=== PATIENT | male | born 1965 | race Caucasian/White ===

== ENCOUNTER 2017-04-01 19:54 | Observation (INO) | payer BC ==
[2017-04-01] MEDS ORDERED: Aspirin Low Dose CHEW TAB* 81 MG PO ONE (20:05)
[2017-04-01] MEDS ORDERED: Aspirin Low Dose CHEW TAB* 81 MG ONE (20:07)
--- NOTE | 2017-04-01 20:29 | ED ---
HPI Chest Pain - HPI Summary HPI Summary: Pt here w/ central chest pressure, SOB, fatigue and "just doesn't feel right" about 30 minutes prior to arrival (19:30). Was sitting with family playing cards when this started. He's been eating all day - tried Tums w/ no relief. Had a brief episode of nausea on the way here - has not returned and no vomiting. No cardiac hx but does smoke and reports he's probably been smoking more as of late as he's been celebrating the holidays with ETOH as well. May be less hydrated than usual as well d/t increased ETOH. Takes wellbutrin and SSRI. Denies headache, visual change, URI sx, cough, wheezing, ab pain, leg swelling, skin changes. Admits to BRB per rectum w/ BM's - he's had this for a few years now and had a colonoscopy 2 years ago to assess this. Discovered he has hemorrhoids causing the bleeding. Reports bleeding is worse when he's been drinking ETOH which he has been and so it's been more than usual. Denies pain w / this. Also reports he's urinating more than usual but denies flank pain, dysuria, urgency. No h/o GERD - takes ibuprofen 200mg every 2-3 weeks ( sometimes on an empty stomach). No recent travel, prolonged sitting or trauma. NOTE: after initial intake, pt reports he's lactose intolerant and ate lasagna tonight. Cheese typically triggers gas/bloating sx followed by diarrhea. Not sure if sx are related or not. - History of Current Complaint Chief Complaint: EDChestPainROMI Time Seen by Provider: 04/01/17 20:00 Hx Obtained From: Patient, Family/Dog Sitter - Pain Intensity: 3 - Allergy/Home Medications Allergies/Adverse Reactions: Allergies Allergy/AdvReac Type Severity Reaction Status Date / Time Trazodone Allergy Intermediate tougne Verified 09/23/12 21:18 swelling Home Medications: Home Medications Cholecalciferol [Vitamin D] 1,000 unit PO 04/01/17 [History Confirmed 04/01/17] buPROPion TAB* [Wellbutrin TAB*] 75 mg PO BID 04/01/17 [History Confirmed ] PMH/Surg Hx/FS Hx/Imm Hx Previously Healthy: Yes Endocrine/Hematology History: Reports: Other Endocrine/Hematological Disorders - reports low WBC's Denies: Hx Anticoagulant Therapy, Hx Blood Disorders, Hx Diabetes, Hx Thyroid Disease, Hx Anemia, Hx Coagulopothy Cardiovascular History: Denies: Hx Aneurysm, Hx Angina, Hx Atrial Fibrillation, Hx Congenital Heart Disease, Hx Congestive Heart Failure, Hx Deep Vein Thrombosis, Hx Hypercholesterolemia, Hx Hypertension, Hx Myocardial Infarction, Hx Syncope, Hx Valvular Heart Disease Respiratory History: Denies: Hx Asthma, Hx Chronic Bronchitis, Hx Chronic Obstructive Pulmonary Disease (COPD), Hx Pulmonary Embolism GI History: Reports: Other GI Disorders - hemorrhoids and lactose intolerance Denies: Hx Gall Bladder Disease, Hx Gastroesophageal Reflux Disease, Hx Hiatal Hernia, Hx Irritable Bowel History: Denies: Hx Benign Prostatic Hyperplasia, Hx Kidney Infection, Hx Kidney Stones Infectious Disease History: No Infectious Disease History: Denies: Traveled Outside the [place] in Last 30 Days - Family History Known Family History: Positive: Hypertension - Social History Occupation: Employed Full-time - works 40+ hours a week Lives: With Family Alcohol Use: Daily Hx Substance Use: No Substance Use Type: Reports: None Hx Tobacco Use: Yes Smoking Status (MU): Current Every Day Smoker Type: Cigarettes Amount Used/How Often: 4-5 qd Length of Time of Smoking/Using Tobacco: age [age] Review of Systems Positive: Fatigue. Negative: Fever, Chills Eyes: Negative Negative: Photophobia, Blurred Vision, Diplopia, Drainage, Erythema ENT: Negative Negative: Epistaxis, Dental Pain, Sore Throat, Ear Ache, Nasal Discharge Cardiovascular: Other - chest pressure Negative: Palpitations Positive: Shortness Of Breath. Negative: Cough Gastrointestinal: Negative Negative: Abdominal Pain, Vomiting, Diarrhea, Nausea Positive: frequency. Negative: burning, dysuria, discharge, flank pain, hematuria, incontinence, pain, urgency Musculoskeletal: Negative Skin: Negative Neurological: Negative Psychological: Normal All Other Systems Reviewed And Are Negative: Yes Physical Exam Triage Information Reviewed: Yes Vital Signs On Initial Exam: Initial Vitals Temp Pulse Resp BP Pulse Ox 97.5 F 65 16 146/87 100 04/01/17 19:55 04/01/17 19:55 04/01/17 19:55 04/01/17 19:55 04/01/17 19:55 Vital Signs Reviewed: Yes Appearance: Positive: Well-Appearing, No Pain Distress - appears concerned but no acute pain, Well-Nourished Skin: Positive: Warm, Dry - no skin changes Head/Face: Positive: Normal Head/Face Inspection Eyes: Positive: Normal, EOMI, HUSSEIN, Conjunctiva Clear - anicteric sclera ENT: Positive: Normal ENT inspection, Hearing grossly normal, Pharynx normal - mucosa moist. Negative: Nasal congestion, Nasal drainage Neck: Positive: Supple, Nontender - no gross thyromegaly Respiratory/Lung Sounds: Positive: Clear to Auscultation, Breath Sounds Present. Negative: Decreased Breath Sounds, Rales, Rhonchi, Subcutaneous Emphysema, Stridor, Tracheal Deviation, Wheezes, Unable to speak in full sentences, Fatigue Cardiovascular: Positive: Normal, RRR, S1, S2. Negative: Leg Edema Left, Leg Edema Right - (-) Joy's B/L Abdomen Description: Positive: No Organomegaly, Soft, Other: - epigastric TTP Bowel Sounds: Positive: Present Musculoskeletal: Positive: Normal, Strength/ROM Intact Neurological: Positive: Normal, Sensory/Motor Intact, Alert, Oriented to Person Place, Time, CN Intact II-III Psychiatric: Positive: Normal - calm, cooperative, alert and pleasant - [place] Coma Scale Coma Scale Total: 15 Diagnostics - Vital Signs Vital Signs Temp Pulse Resp BP Pulse Ox 04/01/17 20:11 70 15 132/85 99 04/01/17 19:55 97.5 F 65 16 146/87 100 - Laboratory Result Diagrams: 04/01/17 20:15 04/01/17 20:15 Lab Statement: Any lab studies that have been ordered have been reviewed, and results considered in the medical decision making process. Re-Evaluation - Re-Evaluation First Eval Change: Improved - sx are somewhat improved after taking ASA Second Eval Change: Improved - sx of pressure and SOB resolved after GI cocktail - epigastrum is no longer TTP Chest Pain Course/Dx - Course Course Of Treatment: Pt presents w/ sudden onset chest pressure and sensation of SOB at 19:30 today. Tried tums on the way over with who drove him here - reports he feels tired and "just not himself". Tums did not provide relief and d/t h/o smoking and recent increase in ETOH w/ holidays, chest w/u was ordered. ECG NSR w/o ST abnormalities. His vitals and labs are unremarkable for infection, acute blood loss, electrolyte imbalance and 1st trop is neg. While waiting for 2nd trop, a GI cocktail was ordered as pt reports he's lactose intolerant and had lasagna tonight which could be triggering his sx as he has epigastric pain w/ palpation. Pt reports resolution of sx w/ GI cocktail and epigastrum is no longer tender. His chest is clear and he states he feels much better. 2nd trop is elevated to 0.47. Spoke w/ Dr. Garvin who advised plavix 300mg (ordered) and anti-coagulation (Dr. Chaudhry to order heparin drip). Repeat ECG is still NSR w/o ST abnormalities - NSTEMI. Spoke w/ Dr. Chaudhry who will order a heparin drip and in to see pt. Pt reports he's pain free at this time and vitals reviewed - in stable condition at times of transfer. - Diagnoses Provider Diagnoses: ACS (acute coronary syndrome) Discharge - Discharge Plan Condition: Stable Disposition: ADMITTED TO [facility]
[2017-04-01 20:31] LABS: ABS Basophils 0.1 10^3/ul (0-0.2); ABS Eosinophils 0.1 10^3/ul (0-0.6); ABS Lymphocytes 2.4 10^3/ul (1.0-4.8); ABS Monocytes 0.5 10^3/ul (0-0.8); ABS Neutrophils 1.8 10^3/ul (1.5-7.7); ABS Nucleated RBC 0.02 10^3/ul; Eosinophil % 1.6 % (0-6); Hematocrit 41 % (42-52); Hemoglobin 14.6 g/dl (14.0-18.0); Lymphocyte % 49.7 % (25-47); Mean Corpuscular HGB Conc 35 g/dl (31-36); Mean Corpuscular Hemoglobin 33 pg (27-31); Mean Corpuscular Volume 92 fL (80-94); Mean Platelet Volume 8 um3 (7.4-10.4); Nucleated Red Blood Cells % 0.4; Platelet Count 192 10^3/ul (150-450); Red Cell Distribution Width 13 % (10.5-15); White Blood Count 4.8 10^3/ul (3.5-10.8)
[2017-04-01 20:43] LABS: EGFR Non-African American 63.1 (>60)
[2017-04-01 20:45] LABS: INR 0.91 (0.77-1.02)
--- NOTE | 2017-04-01 20:49 | RAD ---
INDICATION: Chest pain and shortness of breath. COMPARISON: There are no prior studies available for comparison. TECHNIQUE: A portable view of the chest was obtained. FINDINGS: Cardiac and mediastinal contours appear to be within normal limits. The lungs are underinflated. There are a couple linear densities at the left lung base most consistent with subsegmental atelectasis. The lungs are otherwise clear. No pleural effusion is seen. IMPRESSION: LOW LUNG VOLUMES, MINIMAL LEFT BASILAR SUBSEGMENTAL ATELECTASIS.
[2017-04-01] MEDS ORDERED: Lidocaine 2% VISCOUS* 15 ML UDC PO ONE (20:51)
[2017-04-01] MEDS ORDERED: Al Hydrox/Mg Hydrox/Simet LIQ* 30 ML UDC PO ONE (20:51)
[2017-04-01 22:17] LABS: Urine Appearance Clear; Urine Blood Negative (Negative); Urine Color Straw; Urine Ketones Negative (Negative); Urine Protein Negative (Negative); Urine Specific Gravity 1.012 (1.010-1.030); Urine Urobilinogen Negative (Negative)
[2017-04-01] MEDS ORDERED: Enoxaparin(*) 80 MG/0.8 ML SYR SUBCUT ONE (23:24)
[2017-04-01] MEDS ORDERED: Clopidogrel TAB* 300 MG PO ONE (23:24)
--- NOTE | 2017-04-01 23:32 | ED ---
Moris Yan Thomas, scribed for Carlos Garvin MD on 04/01/17 at 2331 . Progress - Progress Note Progress Note: The patient is a 51 year old male with no past medical history or family history of cardiac disease. He is a smoker. The patient had an episode of about 45 minutes of substernal chest pain, chest tightness, and shortness of breath. This episode did relieve spontaneously by arrival to the ED. The patient is pain -free in the emergency department. EKG obtained in the ED shows no acute ischemia. However, his troponin is elevated. The patient will be treated as acute coronary syndrome. The patient will be admitted, and the patient agrees with this plan. Course/Dx - Diagnoses Provider Diagnoses: ACS (acute coronary syndrome) The documentation as recorded by the Moris cisneros Thomas accurately reflects the service I personally performed and the decisions made by Virgie macdonald Abdul, MD.
[2017-04-02] MEDS ORDERED: Ondansetron INJ* 2 MG/ML VIAL IV PRN (00:14)
[2017-04-02] MEDS ORDERED: Nicotine Inhaler* 10 MG AMP INH PRN (00:14)
[2017-04-02] MEDS ORDERED: NS 0.9% 1000 ML* 1,000 ML IV SCH ×2 (00:15→12:45)
[2017-04-02] MEDS ORDERED: Heparin DRIP 25,000 UNITS(*) 25,000 UNITS/500 ML BAG IVPB SCH (00:15)
[2017-04-02] MEDS ORDERED: Mouth Piece, Nicotine* 1 EACH CARTRIDGE INH ONE (01:00)
[2017-04-02] MEDS ORDERED: Heparin VIAL(*) 5000 UNITS/ML VIAL (FIVE THOUSAND) IV SCH (01:00)
--- NOTE | 2017-04-02 02:38 | HP ---
ADMISSION HISTORY AND PHYSICAL: DATE OF ADMISSION: 04/02/17 PRIMARY CARE PROVIDER: Cesar Sebastian. HEALTHCARE PROXY: His . CODE STATUS: Full. SOURCE OF INFORMATION: History obtained from interview with the patient and his . RELIABILITY: Good. CHIEF COMPLAINT: Chest pressure. HISTORY OF PRESENT ILLNESS: This is a 51-year-old man with past medical history of depression, was in his usual state of health until approximately 7: 30 p.m. the night of presentation, started to develop chest tightness associated with shortness of breath and a sensation that he just felt off and his noted that he "didn't look right." He took some Tums without relief and proceeded to the emergency room. He notes that the pain lasted approximately 2 hours, was substernal, radiating to his left chest, worse with deep inspiration, associated with nausea, but no emesis, no diaphoresis, was mildly lightheaded at the time of onset, no palpitations, no syncope and no loss of consciousness. First time he has experienced such chest pain. He has had no recent travel, although did travel back from [place] several months ago in a 6-hour flight. He does not exercise, has relatively unlimited exercise tolerance, can walk about a mile depending on what he is carrying. He denies orthopnea or PND. In the emergency room, he received aspirin as well as a GI cocktail and when seen by this author, was in no pain. Of note, the patient does have hemorrhoids that bleed intermittently over the last 2 years. Notes that they bleed more when he is drinking more alcohol. He reports the colonoscopy 2 years prior to evaluate lower GI bleeding, which was notable for the hemorrhoids and no other significant pathology per report. He notes that the blood when bleeding is only on the toilet paper and not in the toilet bowl and not associated with the stool. PAST MEDICAL HISTORY: Includes tobacco use, hemorrhoids, lactose intolerance, depression, anxiety, and history of vasectomy. MEDICATIONS: He takes Wellbutrin and Zoloft, unknown doses. His will bring in the medications in the morning. Vitamin D 2000 International Units daily. ALLERGIES: To TRAZODONE. FAMILY HISTORY: No history of CAD or CVA. His father had hypertension. SOCIAL HISTORY: Drinks approximately 7 to 8 beers every other day. Smokes 5 to 6 cigarettes a day for approximately 30 years. Employed as a manufacturing maintenance manager. REVIEW OF SYSTEMS: Notable as per HPI including chest pain, shortness of breath , fatigue, sensation that he just did not feel right, bright red blood per rectum with stool, lightheadedness, nausea, otherwise all other systems negative. PHYSICAL EXAMINATION GENERAL: Sitting at 30 degrees in bed, interactive, pleasant, in no apparent distress. VITAL SIGNS: When seen by this author, blood pressure 120/100, heart rate 57, respiratory rate is 12, 98% on room air, T-max in the emergency room was 97.5. HEENT: His oropharynx is clear. He has moist mucous membranes. Sclerae are anicteric. NECK: He has non-elevated JVD. He has no cervical or supraclavicular lymphadenopathy. LUNGS: Clear to auscultation throughout. HEART: He has regular rate and rhythm. No murmurs, rubs, or gallops. ABDOMEN: Soft, nontender, and nondistended. RECTAL EXAM: Do not indicate any active hemorrhage or signs of bleeding, no externally prolapsed hemorrhoids. EXTREMITIES: Warm and well perfused without clubbing, cyanosis, or edema. He has 2+ peripheral pulses, less than 2 second cap refill. NEUROLOGIC: He is alert and oriented x3. His cranial nerves II through XII are intact. PSYCH: He has no apparent anxiety, agitation, or depression. DIAGNOSTIC STUDIES/LAB DATA: Pertinent labs reviewed. BUN is 21, creatinine 1.22, glucose 133, lactic acid 1.5. Troponin I is 0.00, increasing to 0.47 after 3 hours. His hemoglobin is 14.6 with hematocrit of 41, and platelets 192. Urine is negative. Pertinent imaging reviewed. Chest x-ray, impression: Low lung volumes, minimally left basilar subsegmental atelectasis. EKGs on presentation, normal sinus rhythm, ventricular rate of 63, normal limit axis and interval, T-wave flattening in V2 and V3, minimal upsloping 1-mm ST depressions in V4 and V5, resolved on repeat EKG 3 hours later. ASSESSMENT AND PLAN: This is a 51-year-old man presenting with atypical substernal chest pressure associated with positive cardiac biomarkers. 1. Non-ST segment elevation myocardial infarction. Received aspirin on presentation, initiate heparin with bolus. Received Plavix in the emergency room. Trend troponins, so peak. Repeat EKG with next troponin at 2 a.m. Plan on exercise stress test in the morning. The patient noted that he can walk on treadmill to perform the stress test. Check fasting cholesterol in the morning as well as repeat BMP given slightly elevated creatinine. 125 cc of normal saline running overnight. 2. Acute on chronic kidney disease, unclear if it is acute or chronic with normal saline as above and repeat BMP in the morning. 3. Alcohol abuse. Low suspicion that he will withdraw; however, noted here should he require benzodiazepines. 4. Tobacco abuse, counseled cessation. Nicotine inhaler. 5. Depression. Holding Wellbutrin and Zoloft as unknown doses. will bring in medications in the morning to confirm doses. The patient notes that if he misses several doses, may have symptoms of jitteriness or withdrawal, not concerned about missing the dose in the morning. 6. History of hemorrhoids. Examined, no active bleeding. Careful attention in the setting of heparinization. 7. DVT prophylaxis. Heparin drip. [id number]/[facility] #: [id number] HORACE
[2017-04-02 05:41] LABS: EGFR Non-African American 69.7 (>60)
[2017-04-02] MEDS ORDERED: Influenza VAC *QUAD* 2017-18* 0.5 ML SYRINGE IM ONE (09:00)
[2017-04-02] MEDS: Aspirin EC Low Dose* 81 MG TAB.EC PO SCH (10:11)
--- NOTE | 2017-04-02 10:28 | ECHO ---
Patient: CIARRA CROWLEY [facility] Rec#: [id number] : 1965 Date: 04/02/2017 Age: 51y Height: 167.64 cm / 66.0 in Weight: 77.11 kg / 170.0 lbs Sex: M BSA: 1.87 Room#: 433 Admit Date#: 04/02/2017 Type: Inpatient Referring: Froylan Chaudhry MD Reading: Enio Abarca MD Home Specialist: Gayla Jones RDCS CC: Luz Munoz MD Transthoracic Echocardiogram Indication: NSTEMI BP: 117/75 HR: 52 Rhythm: Bradycardia Findings History: Smoker, heavy ETOH use, depression/anxiety. Technical Comments: The study quality is good. Completed at 1000. Left Ventricle: The left ventricular chamber size is normal. There is no left ventricular hypertrophy. Left ventricular systolic function is at the lower limits of normal. Possible subtle inferoseptal hypokinesis. The estimated ejection fraction is 50-55%. Normal left ventricular diastolic filling is observed. Left Atrium: The left atrium is mildly dilated. Right Ventricle: Moderator Band present. The right ventricular cavity size is normal. The right ventricular global systolic function is low normal. Right Atrium: The right atrium is mildly dilated. Aortic Valve: The aortic valve is trileaflet. The aortic valve leaflets are mildly thickened. There is a trace of aortic regurgitation. There is no evidence of aortic stenosis. Mitral Valve: The mitral valve leaflets are mildly thickened. There is mild mitral regurgitation. There is no evidence of mitral stenosis. Tricuspid Valve: The tricuspid valve leaflets are normal. There is a physiologic tricuspid regurgitation. The right ventricular systolic pressure is estimated at 10 mmHg. No pulmonary hypertension is noted. There is no tricuspid stenosis. Pulmonic Valve: The pulmonic valve appears normal. There is trace to mild pulmonic regurgitation. There is no pulmonic stenosis. Pericardium: There is no significant pericardial effusion. Aorta: There is no dilatation of the ascending aorta. There is no dilatation of the aortic arch. The aortic root is normal in size. Pulmonary Artery: The main pulmonary artery appears normal. Venous: The inferior vena cava appears normal in size. There is a greater than 50% respiratory change in the inferior vena cava dimension. Summary: There was not any prior study for comparison. Conclusions Mild global hypokinesis of the left ventricle is observed. Left ventricular systolic function is at the lower limits of normal. Possible subtle inferoseptal hypokinesis. The estimated ejection fraction is 50-55%. The left atrium is mildly dilated. There is mild mitral regurgitation. Measurements Name Value Normal Range RVIDd (AP) 2D 2.9 cm (0.9 - 2.6) RVDdMajor (2D) 3.9 cm (2.2 - 4.4) RAd ISD 4CH 5.3 cm (3.4 - 4.9) RA (A4C)W 4.9 cm (2.9 - 4.6) IVSd (2D) 0.9 cm (0.6 - 1) LVPWd (2D) 0.8 cm (0.6 - 1) LVIDd (2D) 5.3 cm (3.6 - 5.4) LVIDs (2D) 3.6 cm - LV FS (2D) 32 % (25 - 45) Aortic Annulus 2.2 cm (1.4 - 2.6) Ao root diameter (2D) 3.5 cm (2.1 - 3.5) Ascending Ao 3 cm (2.1 - 3.4) Aortic arch 3 cm (1.8 - 3.4) LA dimension (AP) 2D 3.9 cm (2.3 - 3.8) LAd ISD 4CH 5.3 cm (2.9 - 5.3) LA ISD 4CH W 4.8 cm (2.5 - 4.5) Name Value Normal Range LA ESV SP 4CH (A/L) 59 ml - LA ESV SP 2CH (A/L) 71 ml - LA ESV BP (A/L) 68 ml - LA ESV BP (A/L) index 36 ml/m2 - LA ESV SP 4CH (MOD) 53 ml - LA ESV SP 2CH (MOD) 68 ml - Name Value Normal Range MV E-wave Vmax 0.82 m/sec - MV deceleration time 230.3 msec - MV A-wave Vmax 0.42 m/sec - MV E:A ratio 1.96 ratio - LV septal e' Vmax 0.12 m/sec - LV lateral e' Vmax 0.12 m/sec - LV E:e' septal ratio 6.83 ratio - LV E:e' lateral ratio 6.83 ratio - Name Value Normal Range AV Vmax 1.02 m/sec - AV VTI 24.5 cm - AV peak gradient 4.17 mmHg - AV mean gradient 2.25 mmHg - LVOT Vmax 0.89 m/sec - LVOT VTI 18.8 cm - LVOT peak gradient 3.18 mmHg - LVOT mean gradient 1.43 mmHg - RAYMOND Vmax 0.76 m/sec - Name Value Normal Range MR flow (PISA) 12.74 ml/sec - MR PISA radius 0.2 cm - Name Value Normal Range TR Vmax 1.3 m/sec - TR peak gradient 7 mmHg - RAP 3 mmHg - RVSP 10 mmHg - IVC diameter 1.9 cm - Name Value Normal Range PV Vmax 0.66 m/sec - PV peak gradient 1.76 mmHg - MD end-diastolic Vmax 0.78 m/sec -
[2017-04-02] MEDS ORDERED: Midazolam* 1 MG/ML 10 ML VIAL (10 MG) ONE (11:17)
[2017-04-02] MEDS ORDERED: fentaNYL* 50 MCG/ML 2 ML VIAL (100 MCG VIAL) ONE (11:17)
[2017-04-02] MEDS ORDERED: VERAPAMIL 2.5 MG/ML 4 ML VIAL ONE (11:17)
[2017-04-02] MEDS ORDERED: nitroGLYCERIN DRIP* 25,000 MCG/250 ML BTL ONE (11:17)
[2017-04-02] MEDS ORDERED: Heparin(*) 1000 UNIT/ML 10 ML VIAL CATH LAB IV ONE (11:17)
[2017-04-02] MEDS ORDERED: Heparin 2 UNITS/ML IVPREMIX* 2,000 ML IV ONE (12:32)
[2017-04-02] MEDS ORDERED: Iohexol 350 (CONTRAST) 200 ML MDV IV ONE (12:32)
--- NOTE | 2017-04-02 14:19 | PN ---
Subjective Date of Service: 04/02/17 Interval History: Patient has no complaints at time of interview. Patient denies CP, SOB, N/V, diaphoresis, diarrhea, constipation, F/C, recent illness, dizziness, PND, Nocturia, or orthopnea. Patient denies any previous episodes like this. Family History: Unchanged from Admission Social History: Unchanged from Admission Past Medical History: Unchanged from Admission Objective Active Medications: Aspirin (Aspirin Ec Low Dose*) 81 mg PO DAILY [facility] Last Admin: 04/02/17 10:11 Dose: 81 mg Atorvastatin Calcium (Lipitor*) 80 mg PO 2100 [facility] Clopidogrel Bisulfate (Plavix Tab*) 75 mg PO DAILY [facility] Sodium Chloride (Ns 0.9% 1000 Ml*) 1,000 mls @ 100 mls/hr IV .per rate [facility] Stop: 04/02/17 15:00 Nicotine (Nicotine Inhaler*) 10 mg INH Q2H PRN PRN Reason: CRAVING Ondansetron HCl (Zofran Inj*) 4 mg IV Q4H PRN PRN Reason: NAUSEA/VOMITING Vital Signs - 8 hr 04/02/17 04/02/17 04/02/17 07:42 07:46 12:43 Temperature 97.4 F Pulse Rate 52 53 Respiratory 18 18 11 Rate Blood Pressure 120/81 99/75 (mmHg) O2 Sat by Pulse 98 94 Oximetry 04/02/17 04/02/17 04/02/17 12:45 13:00 13:15 Temperature Pulse Rate 52 52 51 Respiratory 11 16 11 Rate Blood Pressure 102/73 106/73 105/74 (mmHg) O2 Sat by Pulse 95 95 96 Oximetry 04/02/17 13:30 Temperature Pulse Rate 58 Respiratory 16 Rate Blood Pressure 95/71 (mmHg) O2 Sat by Pulse 96 Oximetry Oxygen Devices in Use Now: None Appearance: Patient is a 51yo male who appears stated age and is sitting in the bed in NAD. Eyes: No Scleral Icterus, PERRLA Ears/Nose/Mouth/Throat: NL Teeth, Lips, Gums, Clear Oropharnyx, Mucous Membranes Moist Neck: NL Appearance and Movements; NL JVP, Trachea Midline Respiratory: Symmetrical Chest Expansion and Respiratory Effort, Clear to Auscultation Cardiovascular: NL Sounds; No Murmurs; No JVD, RRR, No Edema Abdominal: NL Sounds; No Tenderness; No Distention, No Hepatosplenomegaly Lymphatic: No Cervical Adenopathy Extremities: No Edema, No Clubbing, Cyanosis Skin: No Rash or Ulcers, No Nodules or Sclerosis Neurological: Alert and Oriented x 3, NL Sensation, NL Muscle Strength and Tone , - - CN II-XII intact. Result Diagrams: 04/01/17 20:15 04/02/17 04:32 Assess/Plan/Problems-Billing Assessment: - Patient Problems (1) NSTEMI (non-ST elevated myocardial infarction) Current Visit: Yes Status: Acute Code(s): I21.4 - NON-ST ELEVATION (NSTEMI) MYOCARDIAL INFARCTION SNOMED Code(s): 504642924 Comment: Patient had chest pressure and SOB with corresponding rise in troponin I up to 2.05. Appreciate Patient underwent Cardiac Catheterization which showed no CAD. Patient started on Atorvastatin, ASA, Plavix. Will start ACEI/BB if BP will tolerate. Currently hypotensive in recovery. Will monitor for hemodynamic stability at least overnight. (2) Anxiety Current Visit: Yes Status: Acute Code(s): F41.9 - ANXIETY DISORDER, UNSPECIFIED SNOMED Code(s): 96908561 Comment: Hold Wellbutrin and Zoloft. (3) Hyperlipidemia Current Visit: Yes Status: Acute Code(s): E78.5 - HYPERLIPIDEMIA, UNSPECIFIED SNOMED Code(s): 19180052 Comment: LDL cholesterol 120, started on Atorvastatin at 80mg daily. (4) DVT prophylaxis Current Visit: Yes Status: Acute Code(s): AAU2076 - SNOMED Code(s): 713016313 (5) Full code status Current Visit: Yes Status: Acute Code(s): Z78.9 - OTHER SPECIFIED HEALTH STATUS SNOMED Code(s): 209321810 Status and Disposition: Patient is admitted inpatient at least overnight for hemodynamic monitoring post cardiac catheterization.
--- NOTE | 2017-04-02 15:21 | CONS ---
CC: Dr. Luz Munoz * INTERVENTIONAL CARDIOLOGY CONSULT NOTE: DATE OF CONSULT: 04/02/17 PRIMARY CARE PHYSICIAN: Dr. Luz Munoz in [place]. HISTORY OF PRESENT ILLNESS: A 51-year-old male admitted with non-ST elevation infarct. For several months, he has had episodes of indigestion, which in some respects are similar to what he experienced yesterday, particularly in that it feels like a pressure sensation. He has also had more exertional dyspnea. He has not had any predictable effort-related chest discomfort. Yesterday, at rest he developed precordial chest tightness with shortness of breath and mild nausea, it lasted about 2 hours, resolved before admission. He has not had palpitations , syncope, PND, orthopnea, or peripheral edema. PAST MEDICAL HISTORY: Depression, history of hemorrhoidal bleeding with negative colonoscopy 2 years ago except for hemorrhoids. PREHOSPITAL MEDICATIONS: 1. Wellbutrin. 2. Zoloft. 3. Vitamin D, not on aspirin. FAMILY HISTORY: His father had abdominal aortic aneurysm per history. SOCIAL HISTORY: He is . He is a smoker. He does mechanical process engineer. REVIEW OF SYSTEMS: General: No weight loss, no fever. He is sedentary. Pulmonary: Negative for pneumonia, bronchitis, asthma. SENIOR DATA INTEGRATION DEVELOPER: No history of TIA or CVA. GI: No peptic ulcer disease. Heme: No history of malignancy or anemia. Circulatory: No claudication. Remainder all negative. PHYSICAL EXAM: He is pain free, looks well, somewhat overweight. BP 120/81, weighs 176 pounds. His lungs are clear without rales or wheezes. No dullness to percussion. JVP is normal at 5. Carotids are normal without bruits. HEENT : Normal without xanthelasma, scleral injection or jaundice. EOMs are normal. Cranial nerves grossly intact. Cardiac Exam: Chest wall is not tender, apex and RV not palpable. Normal S1, S2. No gallop, no murmur, no rub. Rhythm is regular. Abdomen: Soft, nontender, no bruit, I can feel the aorta. Radial, femoral and pedal pulses are normal. He has no cyanosis, clubbing, or edema. Skin is warm and perfused. Psych: He is oriented and appropriate. DIAGNOSTIC STUDIES/LAB DATA: Creatinine is 1.12 with GFR of 69.7. Troponin 0.47, 1.68, 2.05, 1.71. Cholesterol 191, triglycerides 117, LDL 120, HDL 47.6. EKG on presentation showed inferolateral less than 1 mm J-[address] segment depression with subsequent resolution. Chest x-ray by my review, portable film , no infiltrate or heart failure. IMPRESSION: 1. Non-ST elevation infarct. He has small infarct, MISTY score is 2 to 3. We discussed the diagnosis, options of evaluation including stress testing versus cath, pros and cons. We discussed catheterization, possible percutaneous revascularization, procedural risks including need for emergent transfer for bypass grafting, etc. We also discussed the need for dual-antiplatelet therapy. We discussed secondary risk factor modification. All questions were answered, he wants to proceed. 2. Family history of abdominal aortic aneurysm. 3. Tobacco use. He will be encouraged not to resume smoking. 4. Depression. 5. Hemorrhoidal bleeding with negative colonoscopy 2 years ago. [id number]/[facility] #: [id number] [place]
[2017-04-02] MEDS: Clopidogrel TAB* 75 MG PO SCH (15:37)
[2017-04-02] MEDS ORDERED: Acetaminophen TAB* 325 MG PO PRN (19:59)
[2017-04-02] MEDS ORDERED: Atorvastatin* 80 MG TAB PO SCH (21:00)
[2017-04-03 05:14] LABS: ABS Basophils 0 10^3/ul (0-0.2); ABS Eosinophils 0.1 10^3/ul (0-0.6); ABS Lymphocytes 1.5 10^3/ul (1.0-4.8); ABS Monocytes 0.4 10^3/ul (0-0.8); ABS Neutrophils 2.1 10^3/ul (1.5-7.7); ABS Nucleated RBC 0 10^3/ul; Eosinophil % 1.6 % (0-6); Hematocrit 41 % (42-52); Hemoglobin 14.4 g/dl (14.0-18.0); Lymphocyte % 36.7 % (25-47); Mean Corpuscular HGB Conc 35 g/dl (31-36); Mean Corpuscular Hemoglobin 32 pg (27-31); Mean Corpuscular Volume 93 fL (80-94); Mean Platelet Volume 8 um3 (7.4-10.4); Nucleated Red Blood Cells % 0.1; Platelet Count 153 10^3/ul (150-450); Red Blood Count 4.44 10^6/ul (4.0-5.4); Red Cell Distribution Width 13 % (10.5-15); White Blood Count 4.2 10^3/ul (3.5-10.8)
[2017-04-03 05:27] LABS: EGFR Non-African American 68.3 (>60)
[2017-04-03 07:53] VITALS: BP 109/69
[2017-04-03] MEDS: Clopidogrel TAB* 75 MG PO SCH (09:01)
[2017-04-03] MEDS: Aspirin EC Low Dose* 81 MG TAB.EC PO SCH (09:01)
--- NOTE | 2017-04-04 | CATH ---
CC: Cesar Marquez * CATH REPORT: DATE OF PROCEDURE: 04/02/17 - ROOM #[id number] PRIMARY CARE PHYSICIAN: Cesar Marquez. PROCEDURE: Right radial artery access, bilateral selective coronary cineangiography, left heart catheterization, left ventriculography. HISTORY: A 51-year-old male with non ST-elevation infarct, MISTY score 2, peak troponin of 2.05 with inferolateral less than [address] depression on presentation with subsequent resolution. PROCEDURE ACCESS: Right radial artery, sheath 6-F slender. MEDICATIONS: 1. Subcu lidocaine 2. IV Versed. 3. IV fentanyl. 4. Heparin 3000 units. 5. Nitroglycerin 300 mcg. 6. Verapamil 3 mg IA. DIAGNOSTIC CATHETER: 5F TIG4, 5F pigtail, 5FL 3.5, 5FMPA 1. The left coronary had a superior take-off, required a multipurpose for engagement. HEMODYNAMICS: Initial BP 127/88, LV 100/15-20, no aortic valve gradient on pull back. ANGIOGRAPHY: RCA: The RCA is large, dominant, smooth with a large PDA followed by several small posterolateral branches. The RCA has no stenosis. Left Main: The left main is superior, has no stenosis. LAD: The LAD is large, extends past the apex, the LAD has a smooth proximal 30 % stenosis before the first septal, LAD supplies 2 [id number] diagonals. The LAD has no significant stenosis. Circumflex: The circumflex is large, not dominant, supplies several small marginal, ends with a large posterolateral. LV Gram: Reveals symmetrical and normal wall motion, no mitral regurgitation, LVEF 55%. CONCLUSION: 1. No obstructive coronary disease, no angiographic evidence of a culprit lesion. 2. Normal LV systolic function. 3. Elevated LVEDP, otherwise normal left-sided hemodynamics. 4. Successful right radial artery access. 5. Non-ST elevation infarct without obstructive coronary disease at angiography. [id number]/[facility] #: [id number] [facility]
--- NOTE | 2017-04-04 05:09 | DS ---
CC: Dr. Luz Munoz; Dr. Angeles Colunga * DISCHARGE SUMMARY: DATE OF ADMISSION: 04/01/17 DATE OF DISCHARGE: 04/03/17 PRIMARY CARE PROVIDER: Dr. Luz Munoz. CONSULTING PROVIDER: Dr. Angeles Colunga. MY ATTENDING WHILE IN THE HOSPITAL: Dr. Saba Valles * (DICTATED BY ABAD STEWART) PRIMARY DISCHARGE DIAGNOSIS: Non-ST elevation myocardial infarction. SECONDARY DISCHARGE DIAGNOSES: 1. Anxiety/depression. 2. Hyperlipidemia. 3. Tobacco abuse. 4. History of hemorrhoidal bleeding. STUDIES DONE WHILE IN THE HOSPITAL: 1. Chest x-ray from 04/01/17 read as low lung volumes, minimal left basilar subsegmental atelectasis. 2. Electrocardiogram from 04/01/17 shows normal sinus rhythm, T-wave flattening in V2 and V3, [address] segment depression in V4 and V5, no other ST segment changes, normal axis, no hypertrophy or enlargement. No other abnormalities. QTc of 421. 3. Repeat EKG shows improvement in the T-wave flattening, no T-wave inversion in V3 or T-wave flattening in aVF, no other changes. Repeat EKG on 04/02/[address] depression, no other significant changes. Repeat EKG shows improvement in T-wave inversion, no other changes. EKG from 04/03/17 shows T-wave inversion in V3, T-wave flattening in aVF, no other abnormalities. 4. Transthoracic echocardiogram from 04/02/17 read as mild global hypokinesis. The left ventricle, left ventricular systolic function, otherwise normal. Possible subtle inferoseptal hypokinesis, estimated ejection fraction of 50% to 55%, left atrium mildly dilated, mild mitral regurgitation. 5. Cardiac catheterization from 04/02/17 showed no significant coronary artery disease. MEDICATIONS AT DISCHARGE: 1. Bupropion 75 mg p.o. b.i.d. 2. Sertraline 50 mg p.o. daily. 3. Aspirin 81 mg p.o. daily. 4. Atorvastatin 80 mg p.o. daily. 5. Clopidogrel 75 mg p.o. daily. New medications at discharge: 1. Aspirin. 2. Atorvastatin. 3. Clopidogrel. Medications discontinued at discharge: None. HOSPITAL COURSE: This is a brief summary of the patient's presentation. For more details, please see the history and physical from Dr. Froylan Chaudhry on . In brief, the patient is a 51-year-old male with past medical history significant for the above, who presented to the emergency department with chest tightness and shortness of breath at approximately 7:30 on 04/01/17, it was unrelieved by Tums, radiated to left chest, was worse with inspiration, had mild lightheadedness, no syncope. No recent travel. The patient had no relief with Tums. This resolved before the patient was seen in the emergency department. He received aspirin and GI cocktail. The patient had initial troponin, which was 0.00; however, repeat was 0.47. The patient was admitted with NSTEMI, given Plavix, aspirin. He was started on a heparin drip. The patient was scheduled for a stress test in the morning with n.p.o.; however, his troponin continued to rise. The patient remained chest pain free. Cardiology was consulted and it was recommended that the patient should have a cardiac catheterization due to probable NSTEMI. The patient was taken for cardiac catheterization, which showed no significant coronary artery disease. The patient was started on medical therapy consisting of aspirin, Plavix, and Lipitor 80 mg p.o. daily. The patient had no complications from the cardiac catheterization except for mild asymptomatic hypotension and bradycardia. The patient was agreeable to be discharged on 04/03/17 to follow up with Dr. Colunga on 04/11 and to follow up with the [facility] as well. The patient was educated on activity restrictions and diet and he was in agreement. PHYSICAL EXAM ON THE DAY OF DISCHARGE: General: The patient is a 51-year-old male who appears his stated age and sitting comfortably in the bed in no acute distress. Vital Signs: At the time of discharge, temperature 97.7, heart rate 52, respiratory rate 20, oxygen saturation 99% on room air, blood pressure 109/ 69. HEENT: Head: Normocephalic, atraumatic. Sclerae anicteric. No conjunctival injection. Nasal mucosa moist. Oral mucosa moist. No pharyngeal erythema or discharge noted. Neck: Supple, nontender. No lymphadenopathy. No carotid bruits auscultated. Cardiac: Regular rate and rhythm. No clicks, murmurs, gallops, or rubs. Pulses 2+ in the bilateral dorsalis pedis, tibialis , and radial areas. No edema noted in the bilateral lower extremities. Respiratory: Clear to auscultation bilaterally. No wheezes, rales, or rhonchi. Good air exchange bilaterally. Abdomen: Soft, nontender, nondistended. Bowel sounds present and normoactive in all 4 quadrants. No abdominal bruits auscultated. No hepatosplenomegaly. Genitourinary: No suprapubic tenderness or CVA tenderness. Skin: Clean, dry, and intact. No rash. The patient has a hemostatic cardiac catheterization on his left wrist with slight amount of dried blood and a Tegaderm covering the area. Neuro: Cranial nerves II through XII grossly intact. No focal deficits. Alert and oriented x3. Psychiatric: The patient is pleasant and cooperative. LABORATORY DATA ON DAY OF DISCHARGE: White blood cell count 4.2, hemoglobin 14.4, hematocrit 41, platelet count 153. Sodium 133, potassium 3.9, chloride 103, carbon dioxide 26, anion gap 4, BUN 16, creatinine 1.14, glucose 95. Hemoglobin A1c 5.0. LDL cholesterol 120, HDL cholesterol 47.6, triglycerides 117 , cholesterol 191. TSH 1.41. Magnesium 2.1. AST 22, ALT 23, alkaline phosphatase 63. Urine benign. DISCHARGE PLAN: The patient will be discharged to home on maximum medical therapy as outlined above for secondary prevention of [place]. The patient should follow up with Dr. Colunga on the . I have scheduled the patient to follow up with the [facility] for lifestyle management. The patient should avoid excessively strenuous activity directly after his discharge to avoid bleeding from his cardiac catheterization site. The patient should return to the hospital for new chest pain, new symptoms related to his cardiac catheterization site. Patient should follow the discharge instructions and should continue smoking cessation at home. Should talk to his primary care provider about pharmacological aids if he is having difficulty maintaining abstinence. TIME SPENT: Approximately 60 minutes was spent on this discharge, 30 of which was spent [id number] with the patient, obtaining history and physical, and discussing the treatment plan. ABAD STEWART [id number]/[facility] #: [id number] [place]
== END 2017-04-03 10:27 | disposition home or self-care (01) ==
LOC: ED 19:54 → MEDTELE 04-02 00:14 → INTOOBSV 04-02 00:14
PROVIDERS: ADMIT Internal Medicine; ATTEND Internal Medicine
DX: I21.4 Non-ST elevation (NSTEMI) myocardial infarction (principal); F41.9 Anxiety disorder, unspecified; F32.9 Major depressive disorder, single episode, unspecified; E78.5 Hyperlipidemia, unspecified; F17.210 Nicotine dependence, cigarettes, uncomplicated; Z79.82 Long term (current) use of aspirin; Z79.899 Other long term (current) drug therapy; Z23 Encounter for immunization; N28.9 Disorder of kidney and ureter, unspecified; R06.02 Shortness of breath; I51.7 Cardiomegaly
CPT/HCPCS: 36415; 71010; 80048; 80053; 80061; 81003; 83036; 83605; 83735; 84443; 84484; 85025; 85610; 85730; 90471; 90686; 93005; 93306; 93458; 96372; 99156; 99157; 99284; 99406; A9270-GY; G0008; G0378; J1644; J2250; J3010